=== PATIENT | female | born 1975 | race Caucasian/White ===

== ENCOUNTER 2019-05-09 10:10 | Inpatient (IN) | payer BC ==
[~2019-05-09] VITALS: Ht 157.5 cm; Wt 94.0 kg
[2019-05-09 10:57] LABS: CALCIUM 8.7 mg/dL (8.5-10.1); CARBON DIOXIDE 22.6 mmol/L (21-32); CHLORIDE SERUM 106 mmol/L (98-107); CREATININE SERUM 0.6 mg/dL (0.6-1.0); GFR1 > 60 mL/min; GLUCOSE SERUM 95 mg/dL (74-106); POTASSIUM SERUM 4.1 mmol/L (3.5-5.1); SODIUM SERUM 141 mmol/L (136-145)
[2019-05-09 11:01] LABS: ALKALINE PHOSPHATASE 76 U/L (46-116); ALT/SGPT 19 U/L (14-59); AST/SGOT 3 U/L (15-37); BILIRUBIN TOTAL 0.38 mg/dL (0.20-1.00); LIPASE 57 IU/L (73-393); TOTAL PROTEIN, SERUM 7.2 g/dL (6.4-8.2)
[2019-05-09 11:05] LABS: ALBUMIN 3.3 g/dL (3.4-5.0)
--- NOTE | 2019-05-09 11:06 | NUR ---
PT MEDICATED PER MD ORDERS. PT VERBALIZED UNDERSTANDING OF MEDICAITON. SEE EMAR FOR DETAILS.
[2019-05-09 11:32] LABS: PLATELET COUNT 397 x10^3mcL (130-400)
[2019-05-09 11:37] LABS: RED CELL DISTRIBUTION WIDTH 22.5 % (11.5-14.5)
--- NOTE | 2019-05-09 11:40 | NUR ---
PT C/O OF PAIN STS "THE MORPHINE MADE MY PAIN WORSE" DR. CHAUDHARI MADE AWARE. NO NEW ORDERS. PT IS CALM AND COOPERATIVE. NO TEARS. SITTING IN HIGH-FOWLERS.
--- NOTE | 2019-05-09 12:30 | NUR ---
PT RESTING IN POSITION OF COMFORT. AT BEDSIDE. BOTH TALKING AND JOKING. PT RESPS E/U, SKIN IS PINK, WARM AND DRY.
[2019-05-09 12:37] LABS: BAND NEUTROPHIL 1 % (0-10); BASOPHIL 0 % (0-2); MONOCYTE 4 % (0-7); SEGMENTED NEUTROPHILS 91 % (37-75)
[2019-05-09 12:38] LABS: PLATELET MORPHOLOGY PLATELETS INCREASED
[2019-05-09 12:39] LABS: rbc morphology (normal/abnorm) ABNORMAL (NORMAL)
[2019-05-09 13:24] LABS: MAGNESIUM 1.8 mg/dL (1.8-2.4); PHOSPHOROUS 3.1 mg/dL (2.5-4.9)
--- NOTE | 2019-05-09 13:40 | NUR ---
UP ON ENTERING ROOM PT REPORTS IV LINE WAS DISLODGED. SHE DID NOT RECALL WHEN. SMALL AMOUNT OF FLUID NOTED ASIDE BED. ABOUT 20CCS. MADE AWARE. NEW IV LINE ESTABLISHED.
--- NOTE | 2019-05-09 14:36 | NUR ---
HAND-OFF REPORT TO CHETAN FROM MED SURG TO ASSUME CARE.
--- NOTE | 2019-05-09 14:48 | NUR ---
RECEIVED PT FROM ED VIA [employer], CAME IN DUE TO ABDOMINAL PAIN. AAX4. C/O MILD HEADACHE. NO SOB NOTED, LUNG SOUNDS CTA. DENIES CHEST PAIN/PRESSURE, SR ON THE MONITOR. PALE. PULSES ARE PALPABLE. C/O 7/10 HOLLOW ABDOMINAL PAIN, DENIES NAUSEA/VOMITING. LAST BM WAS 2 DAYS AGO. ABLE TO PASS GAS. BOWEL SOUNDS ACTIVE. ABDOMEN IS SOFT AND ROUND. PT STATED THAT SHE IS ON HER MENSTRUAL PERIOD AT THIS TIME. VOIDS. IV SITE ON THE RIGHT HAND IS PATENT AND INTACT. SIDE RAILS UPX2. CALL LIGHT ON REACH. PT'S FIANCE AT BEDSIDE. ENDORSED TO PRIMARY NURSE CHETAN FOR CONTINUITY OF CARE
[2019-05-09 14:55] LABS: microscopic required? YES; urine erythrocyte 3+ (NEGATIVE)
[2019-05-09 15:04] LABS: AMPHETAMINE QUAL UR NONE DETECTED (See below)
--- NOTE | 2019-05-09 15:08 | NUR ---
PT ARRIVED ON UNIT ACCOMPANIED BY RN AND EMT. AOX4, SPEECH CLEAR AND APPROP. BREATHING E/U ON RA. DENIES SOB. LUNGS CTAB. RRR, S1 S2, (-) M/G/R. TELE MONITOR ON. ABD IS SOFT AND DISTENDED, TENDER TO PALPATION. BOWEL SOUNDS NORMOACTIVE. AMBULATORY. C/O 09/08 "HOLLOW" ABD PAIN. REPORTS FEELING HER STOMACH IS "WRANGLED UP LIKE AFTER A ". RECIEVED MORPHINE AND FENTANYL IN ED AND DENIES ANY SIGNIFICANT IMPROVEMENT IN PAIN. NAD. HOB ELEVATED, BED LOW, SIDE RAILS UP X2, CALL LIGHT IN REACH.
[2019-05-09 15:12] VITALS: BP 132/64
[2019-05-09 15:18] VITALS: Ht 157.5 cm; Wt 94.0 kg
[2019-05-09 16:10] VITALS: BP 129/71
--- NOTE | 2019-05-09 16:12 | NUR ---
C/O 10/10 CRAMPING LOWER ABD PAIN.
--- NOTE | 2019-05-09 16:12 | NUR ---
PRBC TRANSFUSION #1 INITIATED AT THIS TIME. VITALS STABLE.
--- NOTE | 2019-05-09 16:40 | NUR ---
PT REPORTS SIGNIFICANT RELIEF OF PAIN FROM DILAUDID. BREATHING E/U. NAD.
--- NOTE | 2019-05-09 18:00 | NUR ---
ASSISTED IN GETTING UP FROM BED. PT AMBULATED TO BATHROOM INDEPENDENTLY TO VOID.
--- NOTE | 2019-05-09 20:00 | NUR ---
PT IS AWAKE AND ORIENTED X4. PT DENIES WATTS OR DIZZINESS AT THIS TIME. PT DENIES CP OR PRESSURE. PT HAS PALPABLE PULSES BILAT ALL EXTREMITIES. PT DENIES SOB. RESPIRATIONS EVEN AND UNLABORED ON ROOM AIR. PT ABD SOFT, ROUND AND NO PAIN UPON PALPATION. PT REPORTS ABD PAIN BUT STATES IT IS TOLERABLE AT THIS TIME. PT REPORTS N/V. PTN ZOFRAN GIVEN ORDERED AND TOLERATED BUT PT REPORTS N/V. PT AMBULATORY WITH STEADY GAIT. PT VOIDS FREELY ON OWN. PT IV FLUIDS NS RUNNING AT 100 ML/HR. NO SIGNS OF DISTRESS. WILL CONTINUE TO MONITOR.
[2019-05-09 21:15] VITALS: BP 141/66
--- NOTE | 2019-05-09 22:22 | NUR ---
PT REMAINS IN BED AT THIS TIME RESTING. PT STATES PAIN IS TOLERABLE TO ABD AT THIS TIME. PT DENIES ANY NEED FOR PRN PAIN MEDICATIONS AT THIS TIME. NO SIGNS OF DISTRESS. WILL CONTINUE TO MONITOR.
--- NOTE | 2019-05-10 01:22 | NUR ---
PT REMAINS IN BED AT THIS TIME RESTING WITH EYES CLOSED. NO SIGNS OF PAIN OR DISCOMFORT. NO SIGNS OF DISTRESS. WILL CONTINUE TO MONITOR.
--- NOTE | 2019-05-10 04:33 | NUR ---
PT REMAINS IN BED AT THIS TIME. NO SIGNS OF PAIN OR DISCOMFORT. NO SIGNS OF DISTRESS. WILL CONTINUE TO MONITOR.
[2019-05-10 04:58] VITALS: BP 124/67
--- NOTE | 2019-05-10 06:46 | NUR ---
PT IS CALM AND COOPERATIVE WITH NURSING CARE. PT REPORTS ABD PAIN IS TOLERABLE AND DID NOT REQUEST PRN PAIN MEDICATIONS. PT HAD ONE EPISODE OF EMESIS AND SINCE HAS SUBSIDED. PT SLEPT THROUGHOUT THE EVENING. PT ABLE TO REPOSITION SELF AND AMBULATE TO RESTROOM ON OWN. ALL PT NEEDS MET. NO SIGNS OF DISTRESS. WILL ENDORSE TO DAY NURSE.
[2019-05-10 07:09] LABS: CALCIUM 8.5 mg/dL (8.5-10.1); CARBON DIOXIDE 22.5 mmol/L (21-32); CHLORIDE SERUM 108 mmol/L (98-107); CREATININE SERUM 0.6 mg/dL (0.6-1.0); GFR1 > 60 mL/min; GLUCOSE SERUM 85 mg/dL (74-106); POTASSIUM SERUM 3.6 mmol/L (3.5-5.1); SODIUM SERUM 142 mmol/L (136-145)
[2019-05-10 07:10] LABS: PLATELET COUNT 337 x10^3mcL (130-400)
[2019-05-10 07:17] LABS: RED CELL DISTRIBUTION WIDTH 22.9 % (11.5-14.5)
--- NOTE | 2019-05-10 07:35 | NUR ---
RECIEVED PT LAYING IN BED. NO ACUTE DISTRESS NOTED. RESP EVEN AND UNLABORED ON ROOM. PT COMPLAINED OF LOWER ABD PAIN 4/10 AND TOLERABLE. NO COMPLAINT OF NAUSEA AT THIS TIME. PT NPO EXCEPT MEDS, EXPRESSED DESIRE TO EAT. PT STATED LAST BM 05/07/19, BS ACTIVE. IV RIGHT HAND INFUSING NS AT 100 ML/HR, NO ERRYTHEMA OR SWELLING NOTED. CALL LIGHT WITHIN EASY REACH, WILL CONTINUE TO MONITOR.
[2019-05-10 08:16] LABS: BAND NEUTROPHIL 0 % (0-10); BASOPHIL 0 % (0-2); MONOCYTE 3 % (0-7); SEGMENTED NEUTROPHILS 84 % (37-75)
[2019-05-10 08:19] LABS: PLATELET MORPHOLOGY PLATELETS NORMAL
[2019-05-10 08:22] LABS: rbc morphology (normal/abnorm) ABNORMAL (NORMAL)
[2019-05-10 10:59] VITALS: BP 117/84
--- NOTE | 2019-05-10 12:50 | NUR ---
DR. CANALES AND MEDICAL TEAM AT BEDSIDE. PT MADE AWARE OF CURRENT CONDITION AND TREATMENT PLAN.
[2019-05-10 16:55] LABS: TOTAL IRON BINDING CAPACITY 265 ug/dL (250-450)
[2019-05-10 16:56] LABS: IRON 17 ug/dL (50-170)
--- NOTE | 2019-05-10 18:15 | NUR ---
PT AWAKE IN BED, FAMILY AT BEDSIDE. NO ACUTE DISTRESS NOTED. RESP EVEN AND UNLABORED ON RA. ALL SCHEDULED MEDICATIONS GIVEN. IV RIGHT HAND WITH NO ERRYTHEMA OR SWELLING NOTED. PT STATED PASSING GAS MULTIPLE TIMES. NO COMPLAINT OF PAIN AT THIS TIME. TOLERATING CLEAR LIQUID DIET WELL.
[2019-05-10 19:06] VITALS: BP 157/63
--- NOTE | 2019-05-10 19:12 | NUR ---
RECEIVED PT FROM PREVIOUS SHIFT. AAO. MEDSURG. DENIES PAIN. DENIES CP. NO S/S ACUTE DISTRESS. DENIES N/V. PT AWARE OF SECOND BLOOD TRANSFUSION ORDERED FOR TODAY, WAITING FOR BLOOD BANK TO CALL. IV SITE TO R HAND CDI, NO ERYTHEMA OR EDEMA NOTED. SISTER AT BEDSIDE. CALL LIGHT WITHIN REACH. SAFETY MEASURES IN PLACE. WILL CONTINUE TO MONITOR.
[2019-05-10 21:28] VITALS: BP 168/56
[2019-05-10 21:58] VITALS: BP 141/80
--- NOTE | 2019-05-10 21:58 | NUR ---
PRE-TRANSFUSION VITALS: 97.8F TEMP, 57 HR, 141/80 BP, 18 RR, 99% OXYGEN SATURATION ON RA.
--- NOTE | 2019-05-10 21:58 | NUR ---
POST-TRANSFUSION VITALS: 97.8F TEMP, 57 HR, 141/80 BP, 18 RR, 99% OXYGEN SATURATION ON RA.
--- NOTE | 2019-05-10 22:00 | NUR ---
BLOOD TRANSFUSION INITIATED AT 2200, VERIFIED WITH JOSHUA UP. REVIEWED ADVERSE SIDE EFFECTS PT SHOULD BE AWARE OF DURING FIRST 15 MINUTES, PT VERBALIZED UNDERSTANDING. CALL LIGHT WITHIN REACH. WILL CONTINUE TO MONITOR.
[2019-05-10 22:15] VITALS: BP 144/77
--- NOTE | 2019-05-10 22:15 | NUR ---
15 MINUTES AFTER TRANSFUSION INTITIATED. PT DENIES ADVERSE EFFECTS, APPEARS COMFORTABLE. VITALS ARE FOLLOWS: 98.2F, 56 HR, 144/77 BP, 18 RR, 99% OXYGEN SATURATION ON RA. WILL CONTINUE TO MONITOR.
[2019-05-11 00:25] VITALS: BP 139/63
--- NOTE | 2019-05-11 00:25 | NUR ---
BLOOD TRANSFUSION COMPLETED, VITALS ARE FOLLOWS: 98.6F TEMP, 59 HR, 139/63 BP, 16 RR, 99% OXYGEN SATURATION. PT DENIES ADVERSE EFFECTS. NO S/S ACUTE DISTRESS. WILL CONTINUE TO MONITOR.
--- NOTE | 2019-05-11 01:39 | NUR ---
PT RESTING IN BED WITH EYES CLOSED. NO S/S ACUTE DISTRESS. NO SIGNS OF PAIN NOTED. CALL LIGHT WITHIN REACH. WILL CONTINUE TO MONITOR.
--- NOTE | 2019-05-11 06:00 | NUR ---
PT C/O 06/08 DULL ABD PAIN, MEDICATED PER EMAR.
[2019-05-11 06:23] VITALS: BP 156/88
[2019-05-11 07:02] LABS: CALCIUM 8.2 mg/dL (8.5-10.1); CARBON DIOXIDE 23.7 mmol/L (21-32); CHLORIDE SERUM 110 mmol/L (98-107); CREATININE SERUM 0.5 mg/dL (0.6-1.0); GFR1 > 60 mL/min; GLUCOSE SERUM 87 mg/dL (74-106); POTASSIUM SERUM 3.6 mmol/L (3.5-5.1); SODIUM SERUM 144 mmol/L (136-145)
[2019-05-11 07:14] LABS: PLATELET COUNT 301 x10^3mcL (130-400)
[2019-05-11 07:15] LABS: RED CELL DISTRIBUTION WIDTH 24.9 % (11.5-14.5)
--- NOTE | 2019-05-11 07:17 | NUR ---
BEDSIDE REPORT GIVEN TO JOSHUA ROCK. ALL QUESTIONS AND CONCERNS ADDRESSED.
--- NOTE | 2019-05-11 07:27 | NUR ---
RECEIVED PT FROM SHIFT NURSE A/OX4 RESTING IN BED. NO ACUTE DISTRESS NOTED. DENIES ANY ABD PAIN AT THIS TIME. IV INTACT AND PATENT. BED IN LOW POSITION. CALL LIGHT WITHIN REACH. WILL CONTINUE TO MONITOR.
[2019-05-11 08:54] VITALS: BP 155/75
--- NOTE | 2019-05-11 10:19 | NUR ---
PT SITTING UP IN BED WATCHING TV. NO ACUTE DISTRESS NOTED. DENIES ABD PAIN. CALL LIGHT WITHIN REACH. WILL CONTINUE TO MONITOR.
[2019-05-11 12:07] LABS: ATYPICAL LYMPH 1 %; BAND NEUTROPHIL 0 % (0-10); BASOPHIL 0 % (0-2); MONOCYTE 5 % (0-7); SEGMENTED NEUTROPHILS 73 % (37-75)
[2019-05-11 12:08] LABS: PLATELET MORPHOLOGY PLATELETS INCREASED
[2019-05-11 12:09] LABS: rbc morphology (normal/abnorm) ABNORMAL (NORMAL)
--- NOTE | 2019-05-11 13:26 | NUR ---
PT RESTING IN BED TALKING ON THE PHONE. CALL LIGHT WITHIN REACH. WILL CONTINUE TO MONITOR.
[2019-05-11] MEDS ORDERED: FLAGYL500 MG PO (13:29)
[2019-05-11] MEDS ORDERED: LEVAQUIN750 MG PO (13:29)
[2019-05-11] MEDS ORDERED: LAC PO (13:30)
[2019-05-11] MEDS ORDERED: IBUPROFEN400 MG PO (13:31)
[2019-05-11] MEDS ORDERED: FERROUS SULFAT325 M2 PO (13:39)
[2019-05-11 14:17] VITALS: BP 155/75
--- NOTE | 2019-05-11 14:50 | NUR ---
PT A/OX4 UPON DC. DENIES ANY ABD PAIN. EDUCATION PROVIDED NEW RX GIVEN. NEW FOLLOW UP APT GIVEN. PT VERBALIZED UNDERSTANDING. IV REMOVED AND CATH INTACT. PERSONAL BELONGINGS TAKEN HOME. ACCOMPANIED BY DONKEY RIDE OPERATOR TO LOBBY.
== END 2019-05-11 15:18 | disposition home or self-care (01) | DRG 391 ==
LOC: ED 10:10 → MU 13:08
PROVIDERS: Emergency Medicine; Internal Medicine; ADMIT Family Medicine
PROC: 30233N1 Transfusion of Nonautologous Red Blood Cells into Peripheral Vein, Percutaneous Approach (ICD-10-PCS; principal; 2019-05-09)
DX: K57.32 Diverticulitis of large intestine without perforation or abscess without bleeding (principal); N17.0 Acute kidney failure with tubular necrosis; D62 Acute posthemorrhagic anemia; N93.8 Other specified abnormal uterine and vaginal bleeding; K44.9 Diaphragmatic hernia without obstruction or gangrene; F17.210 Nicotine dependence, cigarettes, uncomplicated; K80.20 Calculus of gallbladder without cholecystitis without obstruction; Z80.9 Family history of malignant neoplasm, unspecified; Z83.3 Family history of diabetes mellitus
CPT/HCPCS: 85060; 85240; 85246; J1170; J1956; J2270; J2405; J2543; J3010; J3490; J7030; J7050; P9016; Q0092; Q0163